=== PATIENT | female | born 1935 | race Two or more races ===

== ENCOUNTER → 2018-08-20 | Outpatient (CLI) | payer OTHER | END | disposition home or self-care (01) | LOC: MRI 13:26 | DX: M51.36 Other intervertebral disc degeneration, lumbar region (principal); Z98.1 Arthrodesis status | CPT/HCPCS: 72148 ==

== ENCOUNTER 2018-12-05 09:04 | Outpatient (CLI) | payer OTHER | END 2018-12-05 09:07 | disposition home or self-care (01) | LOC: SONOGRAMA 09:04 | DX: R10.9 Unspecified abdominal pain (principal); R31.9 Hematuria, unspecified; N18.3 Chronic kidney disease, stage 3 (moderate) ==

== ENCOUNTER 2019-06-19 10:46 | Outpatient (CLI) | payer OTHER | END 2019-06-19 10:53 | disposition home or self-care (01) | LOC: MAMO-SONO 10:46 | DX: Z12.31 Encounter for screening mammogram for malignant neoplasm of breast (principal); Z87.898 Personal history of other specified conditions; N64.4 Mastodynia ==

== ENCOUNTER 2019-06-19 11:43 | Outpatient (CLI) | payer OTHER | END 2019-06-19 11:56 | disposition home or self-care (01) | LOC: NUCLEAR 11:43 | DX: M81.0 Age-related osteoporosis without current pathological fracture (principal); M85.80 Other specified disorders of bone density and structure, unspecified site ==

== ENCOUNTER 2019-07-22 10:18 | Outpatient (CLI) | payer OTHER | END 2019-07-22 10:20 | disposition home or self-care (01) | LOC: RAD 10:18 | DX: M17.0 Bilateral primary osteoarthritis of knee (principal) ==

== ENCOUNTER 2023-07-07 08:52 | Outpatient (CLI) | payer OTHER | END 2023-07-07 09:00 | disposition home or self-care (01) | LOC: SONOGRAMA 08:52 | PROVIDERS: ATTEND General Practice | DX: R10.32 Left lower quadrant pain (principal); R10.30 Lower abdominal pain, unspecified; R10.31 Right lower quadrant pain ==

== ENCOUNTER 2023-09-14 09:59 | Outpatient (CLI) | payer OTHER | END 2023-09-14 10:06 | disposition home or self-care (01) | LOC: MRI 09:59 | PROVIDERS: ATTEND General Practice | DX: M47.816 Spondylosis without myelopathy or radiculopathy, lumbar region (principal) | CPT/HCPCS: 72148 ==

== ENCOUNTER 2025-06-19 08:44 | Outpatient (CLI) | payer OTHER | END 2025-06-19 09:00 | disposition home or self-care (01) | LOC: MAMO-SONO 08:44 | PROVIDERS: ATTEND General Practice | DX: M48.062 Spinal stenosis, lumbar region with neurogenic claudication (principal); M25.561 Pain in right knee; M25.562 Pain in left knee; N64.4 Mastodynia; M17.12 Unilateral primary osteoarthritis, left knee; M17.11 Unilateral primary osteoarthritis, right knee; Z12.31 Encounter for screening mammogram for malignant neoplasm of breast | CPT/HCPCS: 72148 ==